=== PATIENT | male | born 1945 | race Caucasian/White ===

== ENCOUNTER 2019-12-16 12:20 | Emergency (ER) | payer MEDICARE, OTHER ==
[~2019-12-16 12:20] MED LIST: ATEN25TA PO; OXYC-12 PO
[2019-12-16] MEDS ORDERED: VANCOMYCIN INJECTION 1,000 MG in NS (IVPB) 250 ML IV ONE (12:45)
[2019-12-16] MEDS ORDERED: methylPREDNISolone 125 MG (Solu-MEDROL) VIAL IVP ONE (12:45)
[2019-12-16] MEDS ORDERED: CEFEPIME INJECTION 1,000 MG in WATER (STERILE) FOR INJECTION 10 ML IV ONE (12:45)
[2019-12-16 13:53] LABS: PROTHROMBIN TIME PATIENT 13.4 SEC (12.2-14.7)
[2019-12-16 14:01] LABS: HEMATOCRIT 46 % (40-54); HEMOGLOBIN 16.9 G/DL (13.3-17.7); MEAN CORPUSCULAR HEMOGLOBIN 35 PG (25-34); MEAN CORPUSCULAR VOLUME 95 FL (80-99); WHITE BLOOD COUNT 18.5 10^3/uL (4.3-11.0)
[2019-12-16 14:02] LABS: BASOPHILS # (AUTO) 0.1 10^3/uL (0.0-0.1); BASOPHILS % (AUTO) 0 % (0-10); EOSINOPHILS % (AUTO) 0 % (0-10); LYMPHOCYTES # (AUTO) 0.6 X 10^3 (1.0-4.0); LYMPHOCYTES % (AUTO) 3 % (12-44); MEAN CORPUSCULAR HGB CONC 37 G/DL (32-36); MEAN PLATELET VOLUME 10.4 FL (7.4-10.4); MONOCYTES # (AUTO) 0.5 X 10^3 (0.0-1.0); MONOCYTES % (AUTO) 3 % (0-12); NEUTROPHILS # (AUTO) 17.4 X 10^3 (1.8-7.8); NEUTROPHILS % (AUTO) 94 % (42-75); PLATELET COUNT 252 10^3/uL (130-400); RED CELL DISTRIBUTION WIDTH 11.7 % (10.0-14.5)
[2019-12-16 14:06] LABS: ABG PCO2 25 MMHG (35-45); ABG PH 7.53 (7.37-7.43); ABG PO2 65 MMHG (79-93)
[2019-12-16 14:07] LABS: ABG BASE EXCESS -0.5 MMOL/L (-2.5-2.5); ABG OXYGEN SATURATION 95 % (94-100); ABG TCO2 21.7 MMOL/L (21.0-31.0); ALLENS TEST YES-POS; INSPIRED O2 2 L O2; PATIENT TEMP 36; VENTILATOR NO
[2019-12-16 14:34] LABS: ALKALINE PHOSPHATASE 151 U/L (40-136); BUN/CREATININE RATIO 10; CALCIUM 9.1 MG/DL (8.5-10.1); CARBON DIOXIDE 23 MMOL/L (21-32); CREATININE SERUM 1.04 MG/DL (0.60-1.30); GFR ESTIMATED > 60; GLUCOSE 122 MG/DL (70-105); POTASSIUM 3.7 MMOL/L (3.6-5.0)
[2019-12-16 14:35] LABS: ALANINE AMINOTRANSFERASE 29 U/L (0-55)
[2019-12-16] MEDS: NS IV 1000 ML 1,000 ML IV SCH ×2 (14:35→16:00)
[2019-12-16 14:36] LABS: CHLORIDE 79 MMOL/L (98-107); SODIUM 121 MMOL/L (135-145)
[2019-12-16 14:38] LABS: ACETAMINOPHEN < 10 UG/ML (10-30); SALICYLATE 0.4 MG/DL (5.0-20.0)
[2019-12-16 14:44] LABS: BAND NEUTROPHILS 16 %; BASOPHILS % (MANUAL) 0 %; EOSINOPHILS % (MANUAL) 0 %; LYMPHOCYTES % (MANUAL) 1 %; MONOCYTES % (MANUAL) 1 %; NEUTROPHILS % (MANUAL) 82 %
[2019-12-16 14:56] LABS: BILIRUBIN,URINE NEGATIVE (NEGATIVE); CLARITY,URINE CLEAR; COLOR,URINE YELLOW; GLUCOSE, URINE (UA) NEGATIVE (NEGATIVE); KETONES,URINE NEGATIVE (NEGATIVE); LEUKOCYTE ESTERASE ,URINE NEGATIVE (NEGATIVE); NITRITE,URINE NEGATIVE (NEGATIVE); PROTEIN,URINE NEGATIVE (NEGATIVE); WBC,URINE RARE /HPF
[2019-12-16 14:57] LABS: AMORPHOUS SEDIMENT,UR FEW AMOR PHOSPHATE /LPF; BACTERIA,URINE NEGATIVE /HPF; SQUAMOUS EPITHELIAL CELL,UR 0-2 /HPF
--- NOTE | 2019-12-16 14:59 | Diagnostic Imaging Report ---
Indication: Leukocytosis Portable chest 2:40 PM There are emphysematous changes in the lungs. There are no infiltrates, effusions or pneumothoraces. Heart size and pulmonary vascularity are normal. IMPRESSION: No acute abnormalities in the chest Dictated by: Dictated on workstation # [id number]
[2019-12-16] MEDS ORDERED: CATHETER FLUSH 10 ML SYR IV PRN (15:00)
[2019-12-16] MEDS ORDERED: TETANUS,DIPTH,PERTUSS P/F (BOOSTRIX) 0.5 ML VIAL IM ONE (15:00)
[2019-12-16] MEDS ORDERED: HOLD METFORMIN - RECEIVED CONTRAST 20 ML VIAL IV SCH (15:00)
[2019-12-16] MEDS ORDERED: NS 100 ML (IVPB) BAG IV ONE (15:00)
[2019-12-16] MEDS ORDERED: IOHEXOL 350 MG/ML 150 ML (OMNIPAQUE 350) VIAL IV ONE (15:00)
[2019-12-16 15:01] LABS: AMPHETAMINE SCREEN, URINE NEGATIVE (NEGATIVE); BARBITURATE SCREEN URINE NEGATIVE (NEGATIVE); BENZODIAZEPINES SCREEN URINE NEGATIVE (NEGATIVE); CANNABINOID SCREEN, URINE POSITIVE (NEGATIVE); COCAINE SCREEN URINE NEGATIVE (NEGATIVE); METHADONE STAT NEGATIVE (NEGATIVE); METHAMPHETAMINE SCREEN URINE S NEGATIVE (NEGATIVE); OPIATE SCREEN URINE NEGATIVE (NEGATIVE); OXYCODONE STAT NEGATIVE (NEGATIVE); PROPOXYPHENE STAT NEGATIVE (NEGATIVE); TRICYCLIC ANTIDEPRESSANTS SCRE NEGATIVE (NEGATIVE)
--- NOTE | 2019-12-16 15:31 | Diagnostic Imaging Report ---
Clinical indication: Patient status post fall yesterday. Patient has elevated WBC. Patient has history of throat cancer. Exam: Axial Head CT without IV contrast. Axial CT scan of the cervical spine with sagittal and coronal reformations. Auto Exposure Controls were utilized during the CT exam to meet ALARA standards for radiation dose reduction. Comparison: CT scan of the neck/chest with contrast dated 12/16/2011. Findings: Head CT: There is an 8 mm prominent vascular area in the right M1 MCA genu region which may represent aneurysm. There is slight vascular prominence in this area on the prior study. There is no evidence of acute cerebral infarct, intracranial hemorrhage, or gross mass effect. There is diffuse brain parenchymal volume loss. There is multiple patchy confluent areas of low attenuation white matter changes seen throughout both cerebral hemispheres and periventricular regions. There is normal campos-white matter distinction. There is no significant midline shift or herniation. There is no evidence of hydrocephalus. The basal cisterns are unremarkable. The skull, extracranial soft tissue, and orbits are unremarkable. There are mild secretions, mucosal thickening involving left maxillary sinus and ethmoid sinus. Temporal bones show no significant abnormality. Cervical spine: There is no acute cervical spine fracture or dislocation. There is left curvature of the thoracic spine. There are cervical spine spurs and facet arthropathy. There is no significant bony central canal narrowing. There is no significant bony neural foramen narrowing. There is atherosclerotic disease seen. The previously seen left palatine tonsil mass is not seen on this examination and resolved. There are suspected postsurgical changes with scarring involving the left side of the neck at the level of the oropharynx. Emphysematous lung disease is seen. Impression: 1: There is an 8 mm vascular prominent area in the right M1 MCA genu region concerning for possible aneurysm. CT angiogram of the head and neck is suggested for further evaluation. 2: There is no evidence of acute intracranial hemorrhage or skull fracture. 3: There is cervical spine degenerative disease with no acute fracture or dislocation. 4: Diffuse chronic small vessel ischemic disease with necrosis. Dictated by: Dictated on workstation # [id number]
[2019-12-16 15:38] LABS: FREE T4 (FREE THYROXINE) 0.84 NG/DL (0.70-1.48)
--- NOTE | 2019-12-16 16:11 | Diagnostic Imaging Report ---
CLINICAL INDICATION: Patient with elevated WBC, elevated lactic acid. Patient has history of throat cancer. EXAM: Axial CT scan of the neck soft tissue performed with 50 mL of Omnipaque 350 IV contrast. Coronal and sagittal reformatted images were created. COMPARISON: CT scan of the neck and chest with contrast dated 12/16/2011. FINDINGS: There is no neck soft tissue mass seen. The previously seen left palatine tonsil mass is resolved. There is nonspecific mild mucosal thickening involving the nasopharynx, oropharynx, hypopharynx, soft tissue which may be from chronic posttreatment changes. There is no swelling seen. Secretions in the nasopharynx are noted. There is resolution of the prominence of the posterior lingual adenoid soft tissue. There is high density involving the bilateral parotid glands with some fatty infiltration noted. These findings may also be from posttreatment changes. The bilateral submandibular glands are significantly fatty replaced. There is a 1.2 cm x 1.1 cm x 1.2 cm (AP x Trans x CC) nodular area in the left submandibular region. Patient had a lymph node in this region on the prior CT, but it is now increased in size. There is a heterogeneous enhancing nodular area involving the superficial portion of the right parotid gland near the tail which measures 7 mm x 8 mm x 10 mm (AP x Trans x CC). This may represent a lymph node, but primary salivary gland lesion cannot be completely excluded. Thyroid gland is unremarkable. There is dense atherosclerotic disease involving the proximal great vessels especially the proximal left subclavian artery with at least mpyeujen-mi-mlhigs stenosis. There is a roughly 12 mm x 8 mm aneurysm seen in the right M1 MCA genu region which has increased in size compared to prior study by grossly 6 mm prominence. Emphysematous lung disease is seen. There is cervical spine degenerative disease or vertebral body spurs and facet arthropathy. There is mild paranasal sinus disease involving the ethmoid sinus, left maxillary sinus, and sphenoid sinus. 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 2: Prominent lymph nodes seen in the left submandibular region and right parotid region. Metastatic lymph nodes cannot be completely excluded. 3: There is no other neck soft tissue mass seen. Results of this report were discussed with Dr. Damon Knight via the telephone on 12/16/2019 at 1600 hours. Dictated by: Dictated on workstation # [id number]
--- NOTE | 2019-12-16 16:23 | Diagnostic Imaging Report ---
INDICATION: Elevated white blood cell count, lactic acidosis, history of head and neck cancer of the throat. All CT scans use one or more of the following dose optimizing techniques: automated exposure control, MA and/or KvP adjustment based on patient size and exam type or iterative reconstruction. COMPARISON: Exam compared with chest CT 12/16/2011. No prior dedicated abdominal pelvic CT. FINDINGS: CHEST: Vascular contrast media is predominantly in the systemic arterial system resulting in limited opacification of the pulmonary arterial tree. No appreciable central pulmonary arterial embolus is found. The thoracic aorta is non-aneurysmal and patent. There is pathological-appearing lymphadenopathy in the chest presumptively metastatic given the history. A lower left paratracheal node measures 2.5 x 2.0 cm. An upper right paratracheal node measures 1.3 cm long axis but its irregularity is likely owing to its metastatic involvement. There is pathological precarinal adenopathy with an irregular elongated node measuring 3.1 x 1.6 cm and there is likely metastatic subcarinal adenopathy inseparable and measured in aggregate at 4.4 x 2.3 cm. There is right hilar lymphadenopathy with the largest node measuring 1.5 cm. Left pulmonary hilum unremarkable. Lungs showed severe bullous emphysema. There is some partly calcified biapical pleural-parenchymal scarring. There is a juxtapleural mass in the patient's right lower lobe measuring 1.5 x 1.2 cm. No effusion or pneumothorax. No destructive osseous lesion. No supraclavicular adenopathy evident. Smooth interstitial and septal thickening in the lungs having developed raises the question of a component of interstitial edema. No alveolar consolidation to suggest sohail pneumonia. Findings described in the chest all new from the comparison study of 2011. ABDOMEN AND PELVIS: There are bilateral adrenal masses presumed metastatic, larger on the left is 3.5 x 2.3 cm. Solitary tiny low-density nodule in the right hepatic lobe at the dome anteriorly too small to be characterized solid versus cystic, it is 5.6 mm. There is some heterogeneity and thickening of the pancreatic tail with what appears to be at least a few small masses within that structure. Metastatic disease to the pancreas cannot be excluded versus a primary tumor at the tail. No biliary dilatation. The head and neck and uncinate process appeared normal. Spleen is negative. There is few small renal cortical cysts. Tiny nodule in the retroperitoneal fat posterior to the upper pole of the left kidney is 7 mm. There are bilateral sacral alar fractures isolated to the anterior cortices lateral to the sacral foramen near the SI joints without SI joint diastasis. These appeared unhealed. There are unhealed acute or subacute appearing bilateral superior and inferior pubic rami fractures showing greater comminution and displacement on the left. There is predominantly left-sided pelvic extraperitoneal and intramuscular hemorrhage without arterial phase contrast extravasation. The urinary bladder is catheterized by Sears, its wall is thickened. Small amounts of blood extend into the prevesical space of Retzius. No intraperitoneal free fluid. There are chronic appearing bilateral L5 spondylolysis defects with grade 1-2 anterolisthesis of L5 on S1. There is infrarenal abdominal aortic aneurysm with eccentric thrombus along its right lateral wall. No evidence of rupture of the aneurysm measuring maximal 3.5 x 2.8 cm. There is aneurysmal dilatation at the distal right common femoral artery extending into the thrombosed proximal right SFA without its rupture. This measures 1.5 cm. There is a subcutaneous lesion in the right buttock which may be cystic measuring 6 cm wide with an AP depth of 2 cm. No symphyseal diastasis. IMPRESSION: CHEST: 1. A new presumptively metastatic thoracic mediastinal and right hilar lymphadenopathy. New likely metastatic right lower lobe lung nodule. COPD and superimposition of pulmonary edema suspected. No thoracic effusion. 2. Limited technical opacification of the pulmonary arterial tree without visualized PE. ABDOMEN AND PELVIS: 1. Bilateral adrenal masses strongly suggest metastatic disease. 2. Additional smaller perigastric and peripancreatic likely subcentimeter metastatic nodes. Abnormal appearance of the distal body and tail of the pancreas worrisome for its neoplastic infiltration which could be primary or metastatic. Tiny subcentimeter indeterminate right hepatic lobe lesion. No bile duct dilatation. 3. Acute to subacute unhealed pelvic fractures involve left greater than right superior and inferior pubic rami and bilateral anterior cortical zone 1 sacral alar fractures with chronic appearing bilateral L5 spondylolysis defects and grade 1-2 anterolisthesis. 4. Left greater than right intramuscular and extraperitoneal pelvic hemorrhage, relatively small in volume without arterial phase active extravasation. 5. Unruptured atherosclerotic infrarenal abdominal aortic aneurysm. Aneurysmal dilatation at the junction right common femoral artery and superficial femoral artery with likely SFA occlusion proximally. 6. Indeterminate subcutaneous lesion right buttock likely a large cystic collection. Pertinent results were discussed by phone with the Emergency Room physician. Dictated by: Dictated on workstation # [id number]
--- NOTE | 2019-12-16 16:31 | ED General ---
General Chief Complaint: General Problems/Pain Stated Complaint: WEAKNESS History of Present Illness Date Seen by Provider: Dec 16, 2019 Time Seen by Provider: 12:30 Initial Comments The patient is a 74-year-old male with a history of chronic daily alcohol abuse, tobacco abuse and esophageal cancer treated to remission about 4 years ago. He has evidently not followed up appropriately with primary care or with his cancer physicians since that time. The patient presents with concern for altered mental status and weakness. Reportedly he was in his normal state of health yesterday and today his granddaughter found him altered and unable to get off the couch. EMS were called. In transit to [place] emergency department the patient's blood pressure was low in the 80s systolic and oxygen saturation was in the high 80s on room air. Fluids were initiated and he was placed on nasal cannula oxygen. Upon arrival to the emergency department the patient is disoriented and can only tell me that he is in the hospital. He states that it is the year 1999. He denies pain anywhere and does not recollect any falls or injuries but he does have a skin tear on his right arm. Unclear tetanus status. Vital signs notable for persistent mild hypotension and the patient does look very dry clinically. He does not provide further history. Allergies and Home Medications Allergies Coded Allergies: No Known Allergies (Unverified Allergy, 12/16/11) Home Medications Atenolol 25 Mg Tablet, 12.5 MG PO HS, (Reported) Oxycodone Hcl/Acetaminophen 1 Each Tablet, 1 EACH PO Q4H PRN, (Reported) Patient Home Medication List Home Medication List Reviewed: Yes Review of Systems Review of Systems Constitutional: see HPI All Other Systems Reviewed Negative Unless Noted: Yes (Negative excepted noted.) Past Ljcjvty-Adjhnz-Dapkfu Hx Past Med/Social Hx: Reviewed Nursing Past Med/Soc Hx Patient Social History Alcohol Use: Denies Use Recreational Drug Use: No (TOBACCO USE FOR OVER 50 YRS) Smoking Status: Current Everyday Smoker Type Used: Cigarettes 2nd Hand Smoke Exposure: No Recent Foreign Travel: No Contact w/Someone Who Travel: No Recent Hopitalizations: No Physical Abuse: No Sexual Abuse: No Mistreated: No Fear: No Seasonal Allergies Seasonal Allergies: No Past Medical History Cardiac, Orthopedic Respiratory: No Emphysema Cardiac: Yes Hypertension Neurological: No Reproductive Disorders: No Sexually Transmitted Disease: No Genitourinary: No Gastrointestinal: No Musculoskeletal: Yes (ARTHRITIS) Fractures Endocrine: No HEENT: No Cancer: No Psychosocial: No Integumentary: No Blood Disorders: No Family Medical History Reviewed Nursing Family Hx Physical Exam Vital Signs Capillary Refill : Height, Weight, BMI Height: '" Weight: lbs. oz. kg; BMI Method: General Appearance: No Apparent Distress Comments This is an elderly male appearing acutely ill. Head is normocephalic and atraumatic. Neck is supple and nontender. Oropharynx is dry and lips are cracked. Lungs with soft wheezes to all ford and reasonable air movement bilaterally without other adventitious sounds noted. There is a normal S1 and S2 without rubs or gallops and capillary refill is appropriate, less than 2 seconds globally. Abdomen is soft and nondistended and towards the pelvis some tenderness is appreciated in the abdomen bilaterally. Skin is cool and dry and hands are somewhat cyanotic with some chronic clubbing noted to the digits. There is no peripheral edema appreciated. Psychiatrically, the patient demonstrates appropriate mood and affect and is alert. Neurologically, patient is alert and oriented to situation only and not to date or place. He has somewhat garbled speech. He moves all extremities equally and no lateralizing deficits are grossly noted. He does not cooperate for full formal neurologic examination. Examination the back reveals no erythema, warmth, swelling, step- offs or deformities. There is a skin tear to the right upper extremity just above the elbow. Bilateral upper and lower extremities are neurovascularly intact. Focused Exam Lactate Level 12/16/19 13:05: Lactic Acid Level 6.20*H 12/16/19 16:20: Lactic Acid Level Laboratory Tests Test 12/16/19 13:05 12/16/19 16:20 Lactic Acid Level 6.20 MMOL/L (0.50-2.00) *H Progress/Results/Core Measures Suspected Sepsis SIRS Temperature: Pulse: Respiratory Rate: Laboratory Tests 12/16/19 13:05: White Blood Count 18.5H Blood Pressure / Mean: 12/16/19 13:05: Lactic Acid Level 6.20*H 12/16/19 16:20: Laboratory Tests 12/16/19 13:05: Creatinine 1.04, INR Comment 1.0, Platelet Count 252, Total Bilirubin 1.0 Results/Orders Lab Results Laboratory Tests Test 12/16/19 13:01 12/16/19 13:05 12/16/19 13:11 12/16/19 14:32 Range/Units Ammonia 26 11-32 UMOL/L Thyroid Stimulating Hormone (TSH) 3.85 0.35-4.94 UIU/ML Free Thyroxine 0.84 0.70-1.48 NG/DL Salicylates Level 0.4 L 5.0-20.0 MG/DL Acetaminophen Level < 10 L 10-30 UG/ML Serum Alcohol < 10 <10 MG/DL White Blood Count 18.5 H 4.3-11.0 10^3/uL Red Blood Count 4.86 4.35-5.85 10^6/uL Hemoglobin 16.9 13.3-17.7 G/DL Hematocrit 46 40-54 % Mean Corpuscular Volume 95 80-99 FL Mean Corpuscular Hemoglobin 35 H 25-34 PG Mean Corpuscular Hemoglobin Concent 37 H 32-36 G/DL Red Cell Distribution Width 11.7 10.0-14.5 % Platelet Count 252 130-400 10^3/uL Mean Platelet Volume 10.4 7.4-10.4 FL Neutrophils (%) (Auto) 94 H 42-75 % Lymphocytes (%) (Auto) 3 L 12-44 % Monocytes (%) (Auto) 3 0-12 % Eosinophils (%) (Auto) 0 0-10 % Basophils (%) (Auto) 0 0-10 % Neutrophils # (Auto) 17.4 H 1.8-7.8 X 10^3 Lymphocytes # (Auto) 0.6 L 1.0-4.0 X 10^3 Monocytes # (Auto) 0.5 0.0-1.0 X 10^3 Eosinophils # (Auto) 0.0 0.0-0.3 10^3/uL Basophils # (Auto) 0.1 0.0-0.1 10^3/uL Neutrophils % (Manual) 82 % Lymphocytes % (Manual) 1 % Monocytes % (Manual) 1 % Eosinophils % (Manual) 0 % Basophils % (Manual) 0 % Band Neutrophils 16 % Prothrombin Time 13.4 12.2-14.7 SEC INR Comment 1.0 0.8-1.4 Activated Partial Thromboplast Time 34 24-35 SEC Sodium Level 121 *L 135-145 MMOL/L Potassium Level 3.7 3.6-5.0 MMOL/L Chloride Level 79 L 98-107 MMOL/L Carbon Dioxide Level 23 21-32 MMOL/L Anion Gap 19 H 5-14 MMOL/L Blood Urea Nitrogen 10 7-18 MG/DL Creatinine 1.04 0.60-1.30 MG/DL Estimat Glomerular Filtration Rate > 60 BUN/Creatinine Ratio 10 Glucose Level 122 H 70-105 MG/DL Lactic Acid Level 6.20 *H 0.50-2.00 MMOL/L Calcium Level 9.1 8.5-10.1 MG/DL Corrected Calcium 9.9 8.5-10.1 MG/DL Total Bilirubin 1.0 0.1-1.0 MG/DL Aspartate Amino Transf (AST/SGOT) 61 H 5-34 U/L Alanine Aminotransferase (ALT/SGPT) 29 0-55 U/L Alkaline Phosphatase 151 H 40-136 U/L Troponin I 0.69 *H <0.30 NG/ML Pro-B-Type Natriuretic Peptide 8027.0 H <75.0 PG/ML Total Protein 7.0 6.4-8.2 GM/DL Albumin 3.0 L 3.2-4.5 GM/DL Blood Gas Puncture Site L. RADIAL Blood Gas Patient Temperature 36 Arterial Blood pH 7.53 H 7.37-7.43 Arterial Blood Partial Pressure CO2 25 L 35-45 MMHG Arterial Blood Partial Pressure O2 65 L 79-93 MMHG Arterial Blood HCO3 21 L 23-27 MMOL/L Arterial Blood Total CO2 21.7 21.0-31.0 MMOL/L Arterial Blood Oxygen Saturation 95 94-100 % Arterial Blood Base Excess -0.5 -2.5-2.5 MMOL/L Satnam Test YES-POS Blood Gas Ventilator Setting NO Blood Gas Inspired Oxygen 2 L O2 Urine Color YELLOW Urine Clarity CLEAR Urine pH 7.0 5-9 Urine Specific [place] 1.010 L 1.016-1.022 Urine Protein NEGATIVE NEGATIVE Urine Glucose (UA) NEGATIVE NEGATIVE Urine Ketones NEGATIVE NEGATIVE Urine Nitrite NEGATIVE NEGATIVE Urine Bilirubin NEGATIVE NEGATIVE Urine Urobilinogen 0.2 < = 1.0 MG/DL Urine Leukocyte Esterase NEGATIVE NEGATIVE Urine RBC (Auto) NEGATIVE NEGATIVE Urine RBC NONE /HPF Urine WBC RARE /HPF Urine Squamous Epithelial Cells 0-2 /HPF Urine Crystals PRESENT H /LPF Urine Amorphous Sediment FEW SHREYAS PHOSPHATE H /LPF Urine Bacteria NEGATIVE /HPF Urine Casts NONE /LPF Urine Mucus NONE /LPF Urine Culture Indicated NO Urine Opiates Screen NEGATIVE NEGATIVE Urine Oxycodone Screen NEGATIVE NEGATIVE Urine Methadone Screen NEGATIVE NEGATIVE Urine Propoxyphene Screen NEGATIVE NEGATIVE Urine Barbiturates Screen NEGATIVE NEGATIVE Ur Tricyclic Antidepressants Screen NEGATIVE NEGATIVE Urine Phencyclidine Screen NEGATIVE NEGATIVE Urine Amphetamines Screen NEGATIVE NEGATIVE Urine Methamphetamines Screen NEGATIVE NEGATIVE Urine Benzodiazepines Screen NEGATIVE NEGATIVE Urine Cocaine Screen NEGATIVE NEGATIVE Urine Cannabinoids Screen POSITIVE H NEGATIVE Test 12/16/19 16:20 Range/Units My Orders Orders - DAMON KNIGHT MD Cbc With Automated Diff (12/16/19 12:45) Comprehensive Metabolic Panel (12/16/19 12:45) Troponin I Fs (12/16/19 12:45) Ekg Tracing (12/16/19 12:45) Chest 1 View Ap/Pa Only (12/16/19 12:45) Probnp Fs (12/16/19 12:45) Protime With Inr (12/16/19 12:45) Partial Thromboplastin Time (12/16/19 12:45) Ua Culture If Indicated (12/16/19 12:45) Blood Culture (12/16/19 12:45) Lactic Acid Analyzer (12/16/19 12:45) Ed Iv/Invasive Line Start (12/16/19 12:45) Ns Iv 1000 Ml (Sodium Chloride 0.9%) (12/16/19 12:45) Sputum Culture (12/16/19 12:45) Ed Iv/Invasive Line Start (12/16/19 12:45) O2 (12/16/19 12:45) Influenza A And B Antigens (12/16/19 12:45) Cefepime Injection (Maxipime Injection) (12/16/19 12:45) Vancomycin Injection (Vancomycin Injecti (12/16/19 12:45) Methylprednisolone Sod Succ (Solu-Medrol (12/16/19 12:45) Arterial Blood Gas (12/16/19 12:56) Acetaminophen (12/16/19 13:20) Salicylate (12/16/19 13:20) Alcohol (12/16/19 13:20) Drug Screen Stat (Urine) (12/16/19 13:20) Ct Neck (Soft Tissue) W (12/16/19 13:39) Ammonia (12/16/19 13:01) Free T4 (Free Thyroxine) (12/16/19 13:01) Thyroid Stimulating Hormone (12/16/19 13:01) Ct Head/Cervical Spine Wo (12/16/19 12:45) Manual Differential (12/16/19 13:05) Blood Culture (12/16/19 14:06) Dipht,Pertuss(Acell),Tet Adult (Boostrix (12/16/19 15:00) Ct [facility] Chest/Noang Abd-Pelv W (12/16/19 14:47) Iohexol Injection (Omnipaque 350 Mg/Ml 1 (12/16/19 15:00) Received Contrast (Hold Metformin- Contr (12/16/19 15:00) Sodium Chloride Flush (Catheter Flush Sy (12/16/19 15:00) Ns (Ivpb) (Sodium Chloride 0.9% Ivpb Bag (12/16/19 15:00) Medications Given in ED Current Medications Medications Dose Ordered Sig/Richy Route Start Time Stop Time Status Last Admin Dose Admin Cefepime HCl 1000 mg/Sterile Water 10 ml @ 200 mls/hr ONCE ONCE IV 12/16/19 12:45 12/16/19 12:49 DC 12/16/19 14:35 200 MLS/HR Iohexol 150 ml ONCE ONCE IV 12/16/19 15:00 12/16/19 15:01 DC 12/16/19 15:20 150 ML Methylprednisolone Sodium Succinate 125 mg ONCE ONCE IVP 12/16/19 12:45 12/16/19 12:49 DC 12/16/19 14:35 125 MG Sodium Chloride 10 ml NEEDED PRN IV 12/16/19 15:00 12/16/19 15:20 10 ML Sodium Chloride 100 ml ONCE ONCE IV 12/16/19 15:00 12/16/19 15:01 DC 12/16/19 15:20 100 ML Vancomycin HCl 1000 mg/Sodium Chloride 250 ml @ 250 mls/hr ONCE ONCE IV 12/16/19 12:45 12/16/19 13:44 DC 12/16/19 14:35 250 MLS/HR Vital Signs/I&O Capillary Refill : Progress Note : Progress Note Patient given 30 mL/kg crystalloid bolus and cefepime and vancomycin doses given after cultures drawn. With these interventions, patient's blood pressure has normalized and he has become more alert and responsive. The patient also received Solu-Medrol and breathing treatments with improvement in his respiratory status. Laboratory workup remarkable for leukocytosis to almost 19,000 and lactate of 6, in context suggestive of severe sepsis although no clear source for this has been found as yet. Nevertheless the patient has been c overed with broad-spectrum antibiotics. EKG nonacute and demand ischemia is favored as a cause for troponin elevation. BNP elevated without findings of fluid overload. Radiology contacted me with concern for numerous abnormal findings on imaging of the neck, chest, abdomen and pelvis. Patient has acute bilateral pelvic fractures with minimal pelvic bleeding noted. We'll place a pel tatianna binder. These are likely from falls that the patient does not remember which family state are a chronic problem for him. Patient appears to have diffuse metastatic disease with suspicion that the primary is his esophageal cancer. He has an unruptured large AAA and an unruptured large MCA aneurysm. Patient is hemodynamically stable upon reassessment with blood pressure normali zed, mentation improved and oxygenation appropriate on nasal cannula supplementation. Family are updated on findings of workup and plan for admission and understand and agree. Case discussed with Dr. Aragon of trauma surgery at [facility] who feels that t his patient requires services beyond what we can provide at [facility]. We will therefore proceed with transfer to [facility] where the patient is graciously accepted in transfer by Dr. Robertson. ECG Comment Sinus tachycardia, rate 101, no clear acute ST elevation or depression, baseline artifact limits interpretation, EP interp. Diagnostic Imaging Comments Draft Date of Exam:12/16/19 CT [facility] CHEST/NOANG ABD-PELV W INDICATION: Elevated white blood cell count, lactic acidosis, history of head and neck cancer of the throat. All CT scans use one or more of the following dose optimizing techniques: automated exposure control, MA and/or KvP adjustment based on patient size and exam type or iterative reconstruction. COMPARISON: Exam compared with chest CT 12/16/2011. No prior dedicated abdominal pelvic CT. FINDINGS: CHEST: Vascular contrast media is predominantly in the systemic arterial system resulting in limited opacification of the pulmonary arterial tree. No appreciable central pulmonary arterial embolus is found. The thoracic aorta is non-aneurysmal and patent. There is pathological-appearing lymphadenopathy in the chest presumptively metastatic given the history. A lower left paratracheal node measures 2.5 x 2.0 cm. An upper right paratracheal node measures 1.3 cm long axis but its irregularity is likely owing to its metastatic involvement. There is pathological precarinal adenopathy with an irregular elongated node measuring 3.1 x 1.6 cm and there is likely metastatic subcarinal adenopathy inseparable and measured in aggregate at 4.4 x 2.3 cm. There is right hilar lymphadenopathy with the largest node measuring 1.5 cm. Left pulmonary hilum unremarkable. Lungs showed severe bullous emphysema. There is some partly calcified biapical pleural-parenchymal scarring. There is a juxtapleural mass in the patient's right lower lobe measuring 1.5 x 1.2 cm. No effusion or pneumothorax. No destructive osseous lesion. No supraclavicular adenopathy evident. Smooth interstitial and septal thickening in the lungs having developed raises the question of a component of interstitial edema. No alveolar consolidation to suggest sohail pneumonia. Findings described in the chest all new from the comparison study of 2012. ABDOMEN AND PELVIS: There are bilateral adrenal masses presumed metastatic, larger on the left is 3.5 x 2.3 cm. Solitary tiny low-density nodule in the right hepatic lobe at the dome anteriorly too small to be characterized solid versus cystic, it is 5.6 mm. There is some heterogeneity and thickening of the pancreatic tail with what appears to be at least a few small masses within that structure. Metastatic disease to the pancreas cannot be excluded versus a primary tumor at the tail. No biliary dilatation. The head and neck and uncinate process appeared normal. Spleen is negative. There is few small renal cortical cysts. Tiny nodule in the retroperitoneal fat posterior to the upper pole of the left kidney is 7 mm. There are bilateral sacral alar fractures isolated to the anterior cortices lateral to the sacral foramen near the SI joints without SI joint diastasis. These appeared unhealed. There are unhealed acute or subacute appearing bilateral superior and inferior pubic rami fractures showing greater comminution and displacement on the left. There is predominantly left-sided pelvic extraperitoneal and intramuscular hemorrhage without arterial phase contrast extravasation. The urinary bladder is catheterized by Sears, its wall is thickened. Small amounts of blood extend into the prevesical space of Retzius. No intraperitoneal free fluid. There are chronic appearing bilateral L5 spondylolysis defects with grade 1-2 anterolisthesis of L5 on S1. There is infrarenal abdominal aortic aneurysm with eccentric thrombus along its right lateral wall. No evidence of rupture of the aneurysm measuring maximal 3.5 x 2.8 cm. There is aneurysmal dilatation at the distal right common femoral artery extending into the thrombosed proximal right SFA without its rupture. This measures 1.5 cm. There is a subcutaneous lesion in the right buttock which may be cystic measuring 6 cm wide with an AP depth of 2 cm. No symphyseal diastasis. IMPRESSION: CHEST: 1. A new presumptively metastatic thoracic mediastinal and right hilar lymphadenopathy. New likely metastatic right lower lobe lung nodule. COPD and superimposition of pulmonary edema suspected. No thoracic effusion. 2. Limited technical opacification of the pulmonary arterial tree without visualized PE. ABDOMEN AND PELVIS: 1. Bilateral adrenal masses strongly suggest metastatic disease. 2. Additional smaller perigastric and peripancreatic likely subcentimeter metastatic nodes. Abnormal appearance of the distal body and tail of the pancreas worrisome for its neoplastic infiltration which could be primary or metastatic. Tiny subcentimeter indeterminate right hepatic lobe lesion. No bile duct dilatation. 3. Acute to subacute unhealed pelvic fractures involve left greater than right superior and inferior pubic rami and bilateral anterior cortical zone 1 sacral alar fractures with chronic appearing bilateral L5 spondylolysis defects and grade 1-2 anterolisthesis. 4. Left greater than right intramuscular and extraperitoneal pelvic hemorrhage, relatively small in volume without arterial phase active extravasation. 5. Unruptured atherosclerotic infrarenal abdominal aortic aneurysm. Aneurysmal dilatation at the junction right common femoral artery and superficial femoral artery with likely SFA occlusion proximally. 6. Indeterminate subcutaneous lesion right buttock likely a large cystic collection. Pertinent results were discussed by phone with the Emergency Room physician. Dictated on workstation # [id number] CT NECK (SOFT TISSUE) W CLINICAL INDICATION: Patient with elevated WBC, elevated lactic acid. Patient has history of throat cancer. EXAM: Axial CT scan of the neck soft tissue performed with 50 mL of Omnipaque 350 IV contrast. Coronal and sagittal reformatted images were created. COMPARISON: CT scan of the neck and chest with contrast dated 12/16/2011. FINDINGS: There is no neck soft tissue mass seen. The previously seen left palatine tonsil mass is resolved. There is nonspecific mild mucosal thickening involving the nasopharynx, oropharynx, hypopharynx, soft tissue which may be from chronic posttreatment changes. There is no swelling seen. Secretions in the nasopharynx are noted. There is resolution of the prominence of the posterior lingual adenoid soft tissue. There is high density involving the bilateral parotid glands with some fatty infiltration noted. These findings may also be from posttreatment changes. The bilateral submandibular glands are significantly fatty replaced. There is a 1.2 cm x 1.1 cm x 1.2 cm (AP x Trans x CC) nodular area in the left submandibular region. Patient had a lymph node in this region on the prior CT, but it is now increased in size. There is emphysematous lung disease. There is a heterogeneous enhancing nodular area involving the superficial portion of the right parotid gland near the tail which measures 7 mm x 8 mm x 10 mm (AP x Trans x CC). This may represent a lymph node, but primary salivary gland lesion cannot be completely excluded. Thyroid gland is unremarkable. There is dense atherosclerotic disease involving the proximal great vessels especially the proximal left subclavian artery with at least [id number] stenosis. There is a roughly 12 mm x 8 mm aneurysm seen in the right M1 MCA genu region which has increased in size compared to prior study by grossly 6 mm prominence. Emphysematous lung disease is seen. There is cervical spine degenerative disease or vertebral body spurs and facet arthropathy. There is mild paranasal sinus disease involving the ethmoid sinus, left maxillary sinus, and sphenoid sinus. 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 2: Prominent lymph nodes seen in the left submandibular region and right parotid region. Metastatic lymph nodes cannot be completely excluded. 3: There is no other neck soft tissue mass seen. Results of this report were discussed with Dr. Damon Knight via the telephone on 12/16/2019 at 1600 hours. Dictated on workstation # [id number] Signed Date of Exam:12/16/19 CHEST 1 VIEW AP/PA ONLY Indication: Leukocytosis Portable chest 2:40 PM There are emphysematous changes in the lungs. There are no infiltrates, effusions or pneumothoraces. Heart size and pulmonary vascularity are normal. IMPRESSION: No acute abnormalities in the chest Dictated by: Dictated on workstation # [id number] Draft Date of Exam:12/16/19 CT HEAD/CERVICAL SPINE WO Clinical indication: Patient status post fall yesterday. Patient has elevated WBC. Patient has history of throat cancer. Exam: Axial Head CT without IV contrast. Axial CT scan of the cervical spine with sagittal and coronal reformations. Auto Exposure Controls were utilized during the CT exam to meet ALARA standards for radiation dose reduction. Comparison: CT scan of the neck/chest with contrast dated 12/16/2011. Findings: Head CT: There is an 8 mm prominent vascular area in the right M1 MCA genu region which may represent aneurysm. There is slight vascular prominence in this area on the prior study. There is no evidence of acute cerebral infarct, intracranial hemorrhage, or gross mass effect. There is diffuse brain parenchymal volume loss. There is multiple patchy confluent areas of low attenuation white matter changes seen throughout both cerebral hemispheres and periventricular regions. There is normal campos-white matter distinction. There is no significant midline shift or herniation. There is no evidence of hydrocephalus. The basal cisterns are unremarkable. The skull, extracranial soft tissue, and orbits are unremarkable. There are mild secretions, mucosal thickening involving left maxillary sinus and ethmoid sinus. Temporal bones show no significant abnormality. Cervical spine: There is no acute cervical spine fracture or dislocation. There is left curvature of the thoracic spine. There are cervical spine spurs and facet arthropathy. There is no significant bony central canal narrowing. There is no significant bony neural foramen narrowing. There is atherosclerotic disease seen. The previously seen left palatine tonsil mass is not seen on this examination and resolved. There are suspected postsurgical changes with scarring involving the left side of the neck at the level of the oropharynx. Emphysematous lung disease is seen. Impression: 1: There is an 8 mm vascular prominent area in the right M1 MCA genu region concerning for possible aneurysm. CT angiogram of the head and neck is suggested for further evaluation. 2: There is no evidence of acute intracranial hemorrhage or skull fracture. 3: There is cervical spine degenerative disease with no acute fracture or dislocation. 4: Diffuse chronic small vessel ischemic disease with necrosis. Dictated on workstation # [id number] Critical Care Note Critical Care Total Time (minutes) 90 minutes Departure Impression Primary Impression: Bilateral pubic rami fractures Qualified Codes: S32.591A - Other specified fracture of right pubis, initial encounter for closed fracture; S32.592A - Other specified fracture of left pubis, initial encounter for closed fracture Additional Impressions: Sacral fracture, closed Qualified Codes: S32.19XA - Other fracture of sacrum, initial encounter for closed fracture Metastatic adenocarcinoma of unknown origin Severe sepsis Troponin level elevated Disposition: 02 XFER SHT-TRM HOSP Condition: Critical Transfer Transfer Reason: Exceeds level of care Time Spoke to Accepting Phy: 16:[address] Aragon advises me that this patient requires tertiary trauma transfer. I am in agreement. Accepted in transfer to [facility] by Dr. Robertson. Departure-Patient Inst. Referrals: CHELSEA POON MD (PCP/Family) Primary Care Physician DAMON KNIGHT MD Dec 16, 2019 16:31
[2019-12-16 16:44] VITALS: BP 116/71
[2019-12-21] MEDS ORDERED: AMOX-358 PO (13:58)
[2019-12-21] MEDS ORDERED: OXYC1TAB87 PO (13:58)
[2019-12-21] MEDS ORDERED: ATEN25TA PO (13:58)
[2019-12-21] MEDS ORDERED: THIA100T66 PO (13:58)
[2019-12-21] MEDS ORDERED: NICO-533 TD (13:58)
== END 2019-12-16 17:27 | disposition short-term general hospital (02) ==
LOC: ER FS 12:21
DX: A41.9 Sepsis, unspecified organism (principal); R65.20 Severe sepsis without septic shock; S32.501A Unspecified fracture of right pubis, initial encounter for closed fracture; S32.502A Unspecified fracture of left pubis, initial encounter for closed fracture; S32.10XA Unspecified fracture of sacrum, initial encounter for closed fracture; C15.9 Malignant neoplasm of esophagus, unspecified; R79.89 Other specified abnormal findings of blood chemistry; I10 Essential (primary) hypertension; F17.210 Nicotine dependence, cigarettes, uncomplicated; X58.XXXA Exposure to other specified factors, initial encounter
CPT/HCPCS: 36415; 70450; 70491; 71045; 71275; 72125; 74177; 80053; 80306; 80320; 80329; 81000; 82140; 82805; 83605; 83880; 84439; 84443; 84484; 85007; 85027; 85610; 85730; 87040; 93005; 96361; 96365; 96375